=== PATIENT | female | born 1960 | race American Indian/Alaskan Native ===

== ENCOUNTER 2017-09-07 12:22 | Emergency (ER) | payer MEDICARE ==
[2017-09-07 12:56] VITALS: BP 151/79
[2017-09-07 13:26] LABS: Hematocrit 43.1 % (30.3-42.9); Hemoglobin 14.1 gm/dl (10.1-14.3); Mean Corpuscular HGB Conc 33 % (30-34); Mean Corpuscular Hemoglobin 28 pg (28-32); Mean Corpuscular Volume 86 fl (79-97); Platelet Count 347 K/mm3 (140-440); Red Cell Distribution Width 13.3 % (13.2-15.2)
[2017-09-07 13:38] LABS: BUN/Creatinine Ratio 21; Blood Urea Nitrogen 15 mg/dL (7-17); Calcium 9.2 mg/dL (8.4-10.2); Hemolysis Index 16
[2017-09-07 13:43] LABS: INR 0.91 (0.87-1.13)
[2017-09-07 13:44] LABS: Partial Thromboplastin Time 39.3 Sec. (24.2-36.6)
== END 2017-09-07 19:27 | disposition left against medical advice (07) ==
LOC: ED 12:22
DX: R52 Pain, unspecified (principal); Z53.21 Procedure and treatment not carried out due to patient leaving prior to being seen by health care provider
CPT/HCPCS: 36415; 80048; 85027; 85610; 85730